=== PATIENT | male | born 1990 | race Hispanic/Latino ===

== ENCOUNTER → 2017-11-29 | Outpatient (REF) | payer OTHER ==
[2017-11-29 16:17] LABS: SEMEN APPEARANCE OPAQUE (OPAQUE); SEMEN VOLUME 1.5 ml (4.0-5.0)
[2017-11-29 16:18] LABS: % NORMAL FORMS 4 % (>=4); IMMOTILITY 77 %; NON PROGRESSIVE MOTILITY (c) 7 %; PROGRESSIVE MOTILITY (a) 16 % (>=32); SEMEN VISCOSITY VISCOUS (LIQUID); SPERM ABNORMAL FORMS WBC'S NOTED; SPERM CONCENTRATION 80.8 M/ml (>=15.0); SPERM# 121.2 M/Ejac (>=39); TOTAL MOTILITY 23 % (>=40); TOTAL PROGRESSIVE SPERM 19.5 M/Ejac.; WBC CONCENTRATION <=1 M/ml (<=1 M/ml)
== END ==
LOC: M LAB REF 15:32
DX: N46.9 Male infertility, unspecified (principal)

== ENCOUNTER 2023-02-28 19:45 | Emergency (ER) | payer OTHER ==
[2023-02-28] MEDS ORDERED: CITA20TA6 (19:56)
[2023-02-28] MEDS ORDERED: AMPH1CAP16 (19:56)
[2023-02-28] MEDS ORDERED: CITA10TA7 (19:56)
[2023-02-28 20:34] LABS: BASO # 0.1 10^3/uL (0.0-0.2); BASO % 0.6 % (0.0-1.0); EOS # 0.3 10^3/uL (0.0-0.5); EOS % 3.8 % (0.0-3.0); HEMATOCRIT 48.2 % (42.0-52.0); HEMOGLOBIN 16.1 g/dl (13.5-17.5); LYMPH # 2.6 10^3/uL (1.5-5.0); LYMPH % 31.6 % (24.0-44.0); MEAN CORPUSCULAR HEMOGLOBIN 28.2 pg (27.0-33.0); MEAN CORPUSCULAR HGB CONC 33.4 g/dl (32.0-36.5); MEAN CORPUSCULAR VOLUME 84.4 fl (80.0-96.0); MONO # 0.7 10^3/uL (0.0-0.8); MONO % 8.8 % (2.0-8.0); NEUTROPHILS # 4.5 10^3/uL (1.5-8.5); PLATELET COUNT, AUTOMATED 336 10^3/uL (150-450); RED BLOOD COUNT 5.71 10^6/uL (4.30-6.10); WHITE BLOOD COUNT 8.1 10^3/uL (4.0-10.0)
[2023-02-28 20:54] LABS: INR 0.91; PROTHROMBIN TIME 12.5 SECONDS (12.5-14.5)
[2023-02-28 20:55] LABS: CK-MB VALUE MASS < 1.0 NG/ML (<3.6); PARTIAL THROMBOPLASTIN TIME 32.6 SECONDS (24.8-34.2)
[2023-02-28 20:56] LABS: BLOOD UREA NITROGEN 11 MG/DL (9-23); CALCIUM LEVEL 9.4 MG/DL (8.5-10.1); CARBON DIOXIDE LEVEL 31 MMOL/L (20-31); CHLORIDE LEVEL 102 MMOL/L (98-107); CPK CREATINE PHOSPHOKINASE 162 U/L (46-171); GLOMERULAR FILTRATION RATE > 60.0 (>60); GLUCOSE, FASTING 109 MG/DL (60-100); MB/CK RELATIVE INDEX 0.61 (< OR =4); POTASSIUM SERUM 4.4 MMOL/L (3.5-5.1); SODIUM LEVEL 139 MMOL/L (136-145)
[2023-02-28 23:14] VITALS: BP 146/96
== END 2023-03-01 01:56 | disposition left against medical advice (07) ==
LOC: M ED 19:45
DX: Z53.21 Procedure and treatment not carried out due to patient leaving prior to being seen by health care provider (principal)

== ENCOUNTER 2023-03-06 14:50 | Emergency (ER) | payer OTHER ==
[~2023-03-06] VITALS: Ht 185.4 cm; Wt 105.1 kg
[~2023-03-06 14:50] MED LIST: AMPH1CAP16; CITA10TA7; CITA20TA6
[2023-03-06] MEDS ORDERED: AMPH1CAP5 (15:06)
[2023-03-06 16:11] LABS: BASO % 0.4 % (0.0-1.0); EOS # 0.2 10^3/uL (0.0-0.5); EOS % 2.4 % (0.0-3.0); HEMATOCRIT 46.4 % (42.0-52.0); LYMPH # 2.3 10^3/uL (1.5-5.0); LYMPH % 30.8 % (24.0-44.0); MEAN CORPUSCULAR HEMOGLOBIN 28.4 pg (27.0-33.0); MEAN CORPUSCULAR HGB CONC 34.5 g/dl (32.0-36.5); MEAN CORPUSCULAR VOLUME 82.3 fl (80.0-96.0); MONO # 0.9 10^3/uL (0.0-0.8); MONO % 12.5 % (2.0-8.0); NEUTROPHILS % 53.8 % (36.0-66.0); PLATELET COUNT, AUTOMATED 329 10^3/uL (150-450); RED BLOOD COUNT 5.64 10^6/uL (4.30-6.10); WHITE BLOOD COUNT 7.5 10^3/uL (4.0-10.0)
[2023-03-06 16:37] LABS: BLOOD UREA NITROGEN 13 MG/DL (9-23); CALCIUM LEVEL 9.2 MG/DL (8.5-10.1); CARBON DIOXIDE LEVEL 27 MMOL/L (20-31); CHLORIDE LEVEL 105 MMOL/L (98-107); CPK CREATINE PHOSPHOKINASE 224 U/L (46-171); CREATININE FOR GFR 0.85 MG/DL (0.70-1.30); GLOMERULAR FILTRATION RATE > 60.0 (>60); GLUCOSE, FASTING 90 MG/DL (60-100); MB/CK RELATIVE INDEX 0.44 (< OR =4); POTASSIUM SERUM 4.1 MMOL/L (3.5-5.1); SODIUM LEVEL 139 MMOL/L (136-145)
[2023-03-06 18:28] LABS: CK-MB VALUE MASS < 1.0 NG/ML (<3.6)
[2023-03-06 18:29] LABS: CPK CREATINE PHOSPHOKINASE 213 U/L (46-171); MB/CK RELATIVE INDEX 0.46 (< OR =4)
[2023-03-06] MEDS ORDERED: KETOROLAC 30 MG/ML 1ML VIAL IV ONE (19:05)
[2023-03-06] MEDS ORDERED: NS 1,000 ML IV ONE (19:05)
[2023-03-06 19:29] LABS: CK-MB VALUE MASS < 1.0 NG/ML (<3.6)
[2023-03-06 19:31] LABS: CPK CREATINE PHOSPHOKINASE 207 U/L (46-171); MB/CK RELATIVE INDEX 0.48 (< OR =4)
[2023-03-06 20:42] VITALS: BP 141/92
== END 2023-03-06 21:03 | disposition home or self-care (01) ==
LOC: M ED 14:50
DX: R07.9 Chest pain, unspecified (principal); I77.810 Thoracic aortic ectasia; F90.9 Attention-deficit hyperactivity disorder, unspecified type; F32.A Depression, unspecified; F17.200 Nicotine dependence, unspecified, uncomplicated; Z79.899 Other long term (current) drug therapy
CPT/HCPCS: 71045; 71275; 80048; 82550; 82553; 84484; 85025; 93005; 93041; 94760; 96374; 99285; J1885